=== PATIENT | male | born 1950 | race Caucasian/White ===

== ENCOUNTER → 2017-09-05 | Outpatient (CLI) | payer MEDICARE, OTHER ==
--- NOTE | 2017-09-05 13:10 | KCIC ---
EXAMINATION: Magnetic resonance imaging (MRI) of the lumbar spine without contrast HISTORY: Right leg pain. TECHNIQUE: Multiplanar multi-weighted MRI of the lumbar spine was performed without intravenous contrast using the standard lumbar spine protocol. Contrast information: None administered. COMPARISON: None available. FINDINGS: The alignment of the lumbar spine is normal. Vertebral bodies demonstrate normal signal intensity on all sequences. There are no compression fractures. The conus medullaris terminates at the level of L1. The distal spinal cord signal intensity is normal. There is disc height loss at L5-S1 with disc desiccation and minimal edema. Limited views of the abdomen and pelvis show no soft tissue abnormality. The aorta is normal. L1-L2: There is minimal disc bulge. There is no facet arthropathy. There is no neuroforaminal stenosis. There is no spinal canal stenosis. L2-L3: There is minimal disc bulge. There is mild facet arthropathy. There is no neuroforaminal stenosis. There is no spinal canal stenosis. L3-L4: There is mild circumferential disc bulge. There is moderate facet arthropathy. There is mild neuroforaminal stenosis. There is no spinal canal stenosis. L4-L5: There is mild circumferential disc bulge. There is mild facet arthropathy. There is mild left neuroforaminal stenosis. There is no spinal canal stenosis. L5-S1: There is a posterior disc osteophyte complex asymmetric to the right. There is moderate facet arthropathy. There is mild to moderate neuroforaminal stenosis. There is no spinal canal stenosis. IMPRESSION: Mild degenerative changes of the lumbar spine as described in detail above. Electronically signed by: Maryse Self MD (09/05/2017 1:07 PM) [id number]
== END | disposition home or self-care (01) ==
LOC: KCIC MRI 11:32
PROVIDERS: ATTEND Family Medicine
DX: M47.896 Other spondylosis, lumbar region (principal); M25.78 Osteophyte, vertebrae
CPT/HCPCS: 72148